=== PATIENT | female | born 1990 | race Caucasian/White ===

== ENCOUNTER 2016-12-15 11:09 | Emergency (ER) | payer OTHER ==
[~2016-12-15] VITALS: Ht 162.6 cm; Wt 125.4 kg
[~2016-12-15 11:09] MED LIST: MTR600X PO; OXYC5TAB PO
[2016-12-15 11:18] VITALS: TEMP 37; Ht 162.6 cm; Wt 125.4 kg
[2016-12-15] MEDS ORDERED: AZITHROMYCIN 250 MG TAB PO ONE (12:30)
[2016-12-15] MEDS ORDERED: AZIT250T5 PO (12:40)
--- NOTE | 2016-12-15 12:42 | EMERGENCY ROOM VISIT NOTE ---
ED Visit Note First contact with patient: 11:23 CHIEF COMPLAINT: Sore throat times one week HISTORY OF PRESENT ILLNESS: Patient is a 26-year-old white female who presents to the emergency department for evaluation of a sore throat times one week. She states that throat pain is symmetrical on both sides. She has been using mwax-oyz-cawbojo medications including throat lozenges and ibuprofen for discomfort. Has not documented a fever. She denies any other upper respiratory symptoms. No rash. Denies any posterior neck pain or stiffness. No difficulty breathing. Symptoms came on gradually. She is 3 weeks . She is not breast-feeding. REVIEW OF SYSTEMS: Review of systems as per HPI. All other systems reviewed were negative. At least 6 systems reviewed. PMH: Electronic medical records are reviewed and summarized as above/below. See Problem List. SOCIAL HISTORY: Patient lives at home with her and children. PHYSICAL EXAM: Vital Signs: Reviewed Nurse's notes. MENTAL STATUS: Alert and oriented. EARS: Tympanic membranes intact, not inflamed, have normal contour. External canals clear. THROAT: The pharynx is inflamed and slightly swollen. Scant exudates are seen on the tonsils bilaterally. The oropharyngeal airway is patent. Uvula is midline and no abscess is seen. No trismus. NECK: Cervical lymphadenopathy noted. No nuchal rigidity. SKIN: Clear and dry, no eruptions. No cyanosis, no petechiae. HEART: Regular rate and rhythm. LUNGS: Clear to auscultation. ED course: Patient was given azithromycin 500 mg orally in the emergency department. She has evidence for exudative tonsillitis on exam. She has multiple antibiotic allergies including cephalosporins and penicillins and fluoroquinolones and Bactrim. She will be treated with azithromycin. She does not have any evidence of retropharyngeal or peritonsillar abscess. I do not suspect mononucleosis. She is encouraged to continue izoj-xsx-bvfeudt medications for pain management until antibiotics are affected. Follow-up with her primary care provider for symptoms are not improving. Problem List Medical Problems: (1) section Status: Resolved (2) CHOLELITHIASIS NOS Status: Resolved (3) DIAB BEENA WO COMPL, TYPE II OR UNSPEC TYPE, NOT UNCNTRLD Status: Chronic (4) HYPERTENSION NOS Status: Chronic (5) MORBID OBESITY Status: Chronic (6) TRICHOMONAL VAGINITIS Status: Resolved Current/Historical Medications Scheduled Azithromycin (Zithromax), 250 MG PO DAILY Allergies Coded Allergies: Penicillins (Verified Allergy, Severe, rash,SOB, 11/23/15) Sulfamethoxazole w/Trimethoprim (Verified Allergy, Intermediate, RASH, 11/22) Levofloxacin (Verified Allergy, Mild, HIVES, 11/23/15) Morphine (Verified Adverse Reaction, Intermediate, SENSITIVE/ANXIETY RELATED HAS TOLERATED, 11/23/15) PER DR Deangelo HEATH; PATIENT HAS TOLERATED THIS JUST RELATES MEDICATIONS TO SOME ANXIETY WITH MEDICAL CARE Cephalosporins (Verified Adverse Reaction, Unknown, HAS TOLERATED ANCEF SEVERAL TIMES W/O PROBLEM, 11/23/15) Oxycodone (Verified Adverse Reaction, Unknown, HAS TOLERATED OXYCODONE SEVERAL TIMES, 11/23/15) PER DR Deangelo HEATH; PATIENT HAS TOLERATED THIS JUST RELATES MEDICATIONS TO SOME ANXIETY WITH MEDICAL CARE Uncoded Allergies: contrast media ready (Allergy, Mild, RASH, 11/23/15) Vital Signs Date Time Temp Pulse Resp B/P Pulse Ox O2 Delivery O2 Flow Rate FiO2 12/15/16 12:57 87 20 150/98 96 12/15/16 11:18 Room Air 12/15/16 11:18 37.0 93 18 131/82 98 Room Air Medications Administered Medications (Trade) Dose Ordered Sig/Alex Route Start Time Stop Time Status Last Admin Dose Admin Azithromycin (Zithromax Tab) 500 mg NOW ONCE PO 12/15/16 12:30 12/15/16 12:31 DC 12/15/16 12:46 500 MG Departure Information Impression Primary Impression: Acute pharyngitis Prescriptions Azithromycin (ZITHROMAX) 250 Mg Tab 250 MG PO DAILY, #4 TAB Prov: Christina Anguiano PA 12/15/16 Referrals No Doctor, Assigned (PCP) Patient Instructions My [facility] Additional Instructions Azithromycin(Zithromax) 250mg: Take one a day for 4 additional days. All antibiotics can cause diarrhea. If this occurs and you feel worse or it does not resolve in 1- 2 days follow up with your doctor or return to the Emergency Department as this could be signs of serious underlying problems. Any medication can cause an allergic reaction, stop the pills immediately and return to the ER for rash, hives, breathing difficulties, or swelling. Ibuprofen(Motrin, Advil) may be used for fever or pain. Use 600mg every six hours as needed. Take with food. Avoid using more than 2400mg in a 24 hour period. Do not use 2400mg per day for more than three consecutive days without physician direction. Prolonged inappropriate use can lead to stomach upset or ulcers. This is available over the counter and typically comes in 200mg tablets. (AND/OR) Acetaminophen(Tylenol) may be used for fever or pain. Use 1000mg every eight hours as needed. Avoid using more than 3000mg in a 24 hour period. This is available over the counter. Saltwater gargles. Throat drops as needed for pain. Follow-up with your primary care provider if your symptoms are not improving.
[2016-12-15 12:57] VITALS: BP 150/98; PULSE 87; O2SAT 96
== END 2016-12-15 12:59 | disposition home or self-care (01) ==
LOC: C.EDB 11:12 → C.EDD 12:59
DX: J02.9 Acute pharyngitis, unspecified (principal); E11.9 Type 2 diabetes mellitus without complications; I10 Essential (primary) hypertension; Z87.19 Personal history of other diseases of the digestive system; Z88.0 Allergy status to penicillin; Z88.2 Allergy status to sulfonamides; Z88.5 Allergy status to narcotic agent; Z88.8 Allergy status to other drugs, medicaments and biological substances

== ENCOUNTER 2017-01-13 15:21 | Emergency (ER) | payer OTHER ==
[~2017-01-13] VITALS: Ht 162.6 cm; Wt 128.2 kg
[2017-01-13 15:37] VITALS: Ht 162.6 cm; Wt 128.2 kg
[2017-01-13] MEDS ORDERED: SODIUM CHLORIDE 0.9% 1000ML 1,000 ML IV STA (16:10)
--- NOTE | 2017-01-13 18:22 | DIAGNOSTIC IMAGING REPORT ---
PELVIC ULTRASOUND CLINICAL HISTORY: Vaginal bleeding after section. COMPARISON STUDY: Pelvic ultrasound April 14, [address] of the abdomen and pelvis December 29, 2011. TECHNIQUE: Transabdominal and transvaginal sonography of the pelvis was performed. FINDINGS: This exam is compromised by suboptimal penetration. The uterus measures 9.7 x 4.7 x 5.9 cm. Endometrium measures 1.3 cm in thickness. No areas of increased vascularity within the uterus are identified. The right ovary is sonographically normal. The left was not visualized. IMPRESSION: 1. Normal endometrial thickness of 1.3 cm. No sonographic evidence of retained products of conception. No free fluid. No parauterine hematoma identified. 2. Study compromised by suboptimal penetration. Nonvisualization of the left ovary. Electronically signed by: Rodney Leiva M.D. 01/13/2017 6:20 PM Dictated Date/Time: 01/13/2017 6:18 PM
[2017-01-13 18:45] VITALS: BP 144/98; PULSE 60; TEMP 36.8; O2SAT 98
--- NOTE | 2017-01-13 21:46 | EMERGENCY ROOM VISIT NOTE ---
History First contact with patient: 15:39 Chief Complaint: ED VAG BLEEDING Stated Complaint: BLEEDING History of Present Illness The patient is a 26 year old female who presents to the Emergency Room with complaints of vaginal bleeding for the past 6 weeks. The patient reports that she had a performed in [place] 6 weeks ago. She reports that she also had a tubal ligation at that time. She states she has had vaginal bleeding since then. She reports it has been heavier over the past 2 days. She states that she went through 2 pads overnight. She states that her DIGITAL EDITOR is located in [place]. She denies any significant abdominal pain. She denies any urinary symptoms. She denies any history or family history of bleeding disorders. Review of Systems A complete 10-point Review of Systems was discussed with the patient, with pertinent positives and negatives listed in the History of Present Illness. All remaining Review of Systems questions can be considered negative unless otherwise specified. Past Medical/Surgical History Medical Problems: (1) section (2) CHOLELITHIASIS NOS (3) Delivery by elective section (4) DIAB BEENA WO COMPL, TYPE II OR UNSPEC TYPE, NOT UNCNTRLD (5) HYPERTENSION NOS (6) MORBID OBESITY (7) TRICHOMONAL VAGINITIS Surgical Problems: (1) Previous section Family History Diabetes mellitus Heart disease Hypertension Social History Smoking Status: Former Smoker Alcohol Use: none Drug Use: none Marital Status: Housing Status: lives with family Occupation Status: employed Current/Historical Medications No Active Prescriptions or Reported Meds Allergies Coded Allergies: Penicillins (Verified Allergy, Severe, rash,SOB, 01/13/17) Sulfamethoxazole w/Trimethoprim (Verified Allergy, Intermediate, RASH, ) Levofloxacin (Verified Allergy, Mild, HIVES, 01/13/17) Morphine (Verified Adverse Reaction, Intermediate, SENSITIVE/ANXIETY RELATED HAS TOLERATED, 01/13/17) PER DR Deangelo HEATH; PATIENT HAS TOLERATED THIS JUST RELATES MEDICATIONS TO SOME ANXIETY WITH MEDICAL CARE Cephalosporins (Verified Adverse Reaction, Unknown, HAS TOLERATED ANCEF SEVERAL TIMES W/O PROBLEM, 01/13/17) Oxycodone (Verified Adverse Reaction, Unknown, HAS TOLERATED OXYCODONE SEVERAL TIMES, 01/13/17) PER DR Deangelo HEATH; PATIENT HAS TOLERATED THIS JUST RELATES MEDICATIONS TO SOME ANXIETY WITH MEDICAL CARE Uncoded Allergies: contrast media ready (Allergy, Mild, RASH, 11/23/15) Physical Exam Vital Signs Date Time Temp Pulse Resp B/P Pulse Ox O2 Delivery O2 Flow Rate FiO2 01/13/17 18:45 36.8 60 18 144/98 98 01/13/17 17:46 60 14 144/98 98 Room Air 01/13/17 15:37 36.8 80 16 137/89 94 Room Air Pain Rating (0-10): 0 Physical Exam VITALS: Vitals are noted on the nurse's note and reviewed by myself. Vital signs stable. GENERAL: This is a 26-year-old female, in no acute distress, nondiaphoretic, well-developed well-nourished. HEART: Regular rate and rhythm without murmurs gallops or rubs. LUNGS: Clear to auscultation bilaterally without wheezes, rales or rhonchi. No dullness to percussion. No retractions or accessory muscle use. ABDOMEN: Positive bowel sounds x 4. Soft, nontender to palpation. PELVIC: There is a small amount of bleeding from the cervical os. NEURO: Patient was alert and oriented to person place and time. Medical Decision & Procedures ER Provider Diagnostic Interpretation: PELVIC ULTRASOUND CLINICAL HISTORY: Vaginal bleeding after section. COMPARISON STUDY: Pelvic ultrasound April 14, [address] of the abdomen and pelvis December 29, 2011. TECHNIQUE: Transabdominal and transvaginal sonography of the pelvis was performed. FINDINGS: This exam is compromised by suboptimal penetration. The uterus measures 9.7 x 4.7 x 5.9 cm. Endometrium measures 1.3 cm in thickness. No areas of increased vascularity within the uterus are identified. The right ovary is sonographically normal. The left was not visualized. IMPRESSION: 1. Normal endometrial thickness of 1.3 cm. No sonographic evidence of retained products of conception. No free fluid. No parauterine hematoma identified. 2. Study compromised by suboptimal penetration. Nonvisualization of the left ovary. Medical Decision Differential diagnosis includes retained placenta, normal vaginal bleeding, bleeding disorder, among others. The patient was evaluated as above. I strongly suggested that we obtain lab work to check a hemoglobin, but the patient adamantly refused. I did explain my reasoning for ordering these tests and she refused to have any blood work performed. She stated that she was going to see her DIGITAL EDITOR this week and that she only wanted an ultrasound. An ultrasound was performed, however prior to the radiology report the patient requested to leave. I did explain to her that if she left prior to these results, she would be leaving AGAINST MEDICAL ADVICE. The risks were discussed with the patient to include anemia, infection , or other complication, and she did sign an AMA form. The patient was strongly encouraged to follow-up with her DIGITAL EDITOR or return here for worsening bleeding. Impression Primary Impression: Abnormal vaginal bleeding Departure Information Dispostion Against Medical Advice Condition GOOD Prescriptions No Active Prescriptions or Reported Meds Referrals Chase Ohara D.O.Int.Med. (PCP) Forms WORK / SCHOOL INSTRUCTIONS, HOME CARE DOCUMENTATION FORM, IMPORTANT VISIT INFORMATION Patient Instructions My [facility]
== END 2017-01-13 18:30 | disposition left against medical advice (07) ==
LOC: C.EDB 15:24 → C.EDA 18:30
DX: N93.9 Abnormal uterine and vaginal bleeding, unspecified (principal); I10 Essential (primary) hypertension; E11.9 Type 2 diabetes mellitus without complications; Z87.19 Personal history of other diseases of the digestive system; Z86.19 Personal history of other infectious and parasitic diseases; Z87.891 Personal history of nicotine dependence; Z88.0 Allergy status to penicillin; Z88.2 Allergy status to sulfonamides; Z88.5 Allergy status to narcotic agent; Z88.8 Allergy status to other drugs, medicaments and biological substances; Z83.3 Family history of diabetes mellitus; Z82.49 Family history of ischemic heart disease and other diseases of the circulatory system